=== PATIENT | female | born 1985 | race Caucasian/White ===

== ENCOUNTER 2022-12-24 05:15 | Inpatient (IN) | payer OTHER ==
[~2022-12-24] VITALS: Ht 160 cm; Wt 3.2 kg
[2022-12-24] MEDS ORDERED: PRENATAL TABLE1 EAC1 PO (06:21)
[2022-12-24] MEDS ORDERED: IRON325 MG PO (06:22)
[2022-12-24] MEDS ORDERED: LEVOTHYROXINE25 MCG PO (06:23)
[2022-12-24] MEDS ORDERED: ECOTRIN81 MG PO (06:24)
[2022-12-24] MEDS ORDERED: HUMULIN N100 UNIT/2 SUBCUTANEO ×2 (06:26→06:27)
[2022-12-24] MEDS ORDERED: HUMULIN R100 UNIT/1 SUBCUTANEO ×2 (06:28→06:30)
[2022-12-24 07:07] LABS: HEMATOCRIT 38.6 % (36.0-45.00); HEMOGLOBIN 13.5 g/dL (12.0-15.00); MEAN CELL VOLUME 87.8 fL (80.00-100.00); MEAN CORPUSCULAR HEMOGLOBIN 30.8 pg (27.00-32.0); MEAN CORPUSCULAR HGB CONC 35.1 g/dl (32.0-36.0); PLATELET COUNT 263 K/uL (150-450); RED CELL DISTRIBUTION WIDTH 18.7 % (11.5-14.5)
[2022-12-24 07:08] LABS: URINE APPEARANCE Clear; URINE BILIRRUBIN Negative (NEGATIVE); URINE BLOOD Negative; URINE COLOR Yellow; URINE GLUCOSE Negative (NEGATIVE); URINE LEUKOCYTE Trace; URINE NITRATE Negative; URINE PROTEIN Negative (NEGATIVE); URINE UROBILINOGEN 0.2 E.U./dl
[2022-12-24 07:09] LABS: URINE BACTERIA 1400.8 uL (0.0-1933); URINE EPITHELIAL CELLS 115.2 uL (0.0-38.8); URINE RBC 21.2 uL (0.0-20.8); URINE WBC 27.8 uL (0.0-23.2)
[2022-12-24 07:16] LABS: INR 0.98; PARTIAL THROMBOPLASTIN TIME 27.3 SECONDS (22.0-34.0); PROTHROMBIN TIME 10.3 SECONDS (9.0-11.5)
[2022-12-24 07:36] LABS: ALBUMIN 2.6 gm/dL (3.4-5.0); BILIRUBIN TOTAL 0.71 mg/dL (0.3-1.2); CALCIUM 9.2 mg/dL (8.5-10.1); CREATININE SERUM 0.57 mg/dL (0.55-1.02); GFR 120.01; GLOBULINA 3.8 G/DL (2.4-3.5); POTASSIUM 4.02 mEq/L (3.5-5.1); TOTAL PROTEIN 6.4 gm/dL (6.4-8.2)
[2022-12-24 19:03] LABS: ABG PH 7.302 (7.35-7.45); ABG PO2 18.5 mmHg (80-100); ABG pCO2 45.9 mmHg (35-45); BASE EXCESS -4.3 mmol/l; BICARBONATE 22.2 mmol/l (23-25); SaO2 22.2 %
[2022-12-24 19:04] LABS: Tco2 23.6 mmol/l; o2 21 %
[2022-12-25 02:01] LABS: HEMATOCRIT 36.3 % (36.0-45.00); HEMOGLOBIN 12.5 g/dL (12.0-15.00); MEAN CORPUSCULAR HEMOGLOBIN 30.3 pg (27.00-32.0); MEAN CORPUSCULAR HGB CONC 34.5 g/dl (32.0-36.0); PLATELET COUNT 263 K/uL (150-450); RED BLOOD COUNT 4.12 M/uL (4.00-6.00); RED CELL DISTRIBUTION WIDTH 18.3 % (11.5-14.5)
[2022-12-26] MEDS ORDERED: COLACE100 MG PO (12:36)
[2022-12-26] MEDS ORDERED: IBU800 MG PO (12:41)
[2022-12-26] MEDS ORDERED: SIMETHICONE125 M1 PO (12:41)
== END 2022-12-26 14:57 | disposition home or self-care (01) | DRG 788 ==
LOC: LDR 05:15 → OB/GYN 05:15
PROVIDERS: ADMIT Specialist; ATTEND Specialist
PROC: 3E033VJ Introduction of Other Hormone into Peripheral Vein, Percutaneous Approach (ICD-10-PCS; 2022-12-24)
PROC: 4A1HXCZ Monitoring of Products of Conception, Cardiac Rate, External Approach (ICD-10-PCS; 2022-12-24)
PROC: 3E0P7VZ Introduction of Hormone into Female Reproductive, Via Natural or Artificial Opening (ICD-10-PCS; 2022-12-24)
PROC: 10D00Z1 Extraction of Products of Conception, Low, Open Approach (ICD-10-PCS; principal; 2022-12-24 16:00)
DX: O62.1 Secondary uterine inertia (principal); O99.824 Streptococcus B carrier state complicating childbirth; O24.424 Gestational diabetes mellitus in childbirth, insulin controlled; Z3A.39 39 weeks gestation of pregnancy; Z37.0 Single live birth